=== PATIENT | male | born 1935 | race Two or more races ===

== ENCOUNTER 2016-09-13 17:21 | Emergency (ER) | payer MEDICARE, MEDICAID ==
[2016-09-13 17:40] VITALS: TEMP 98.6; BMI 20.7
[2016-09-13] MEDS ORDERED: SODIUM CHLORIDE 0.9% 10 ML FLUSH FLUSH PRN (18:09)
[2016-09-13] MEDS ORDERED: ASPIRIN 325 MG TAB PO ONE (18:28)
[2016-09-13 18:44] LABS: AUTOMATED BASOPHIL 0.8 % (0-2); AUTOMATED EOSINOPHIL 5.8 % (0-5); AUTOMATED LYMPH 24.1 % (17-44); AUTOMATED MONOCYTE 6.8 % (3-10); AUTOMATED NEUTROPHIL 62.5 % (45-76); MPV 9.2 fL (7.4-10.4)
--- NOTE | 2016-09-13 18:51 | DIRPT ---
CLINICAL DATA: Chest pain and weakness. EXAM: PORTABLE CHEST 1 VIEW COMPARISON: None FINDINGS: The cardiac silhouette is enlarged. Mediastinal contours appear intact. There is prominence of bilateral hilar regions. There is no evidence of focal airspace consolidation, pleural effusion or pneumothorax. Lung volumes are low. There is bibasilar subsegmental atelectasis. Osseous structures are without acute abnormality. 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 Soft tissues are grossly normal. IMPRESSION: Low lung volumes with bibasilar subsegmental atelectasis. Mildly enlarged cardiac silhouette. Prominence of bilateral hilar regions. This may represent overlapping vascular markings or hilar lymphadenopathy. Electronically Signed By: Mitali Boggs M.D. On: 09/13/2016 18:48
--- NOTE | 2016-09-13 18:53 | EDPRACDOC ---
- General Information Chief Complaint: Chest Pain Stated Complaint: UNABLE TO SLEEP X 2 DAYS CP HEADACE Time Seen by Provider: 09/13/16 18:09 Information Source: Patient Mode of Arrival: Car Home Medications: Home Medications Aspirin (Enteric Coated) [Halfprin] 81 mg PO DAILY #30 tab 09/13/16 Lorazepam [Ativan] 1 mg PO QHS #30 tab 09/13/16 Melatonin/Pyridoxine HCl (B6) [Melatonin 1 mg Tablet] 2 mg PO QHS 09/13/16 Allergies/Adverse Reactions: Allergies Allergy/AdvReac Type Severity Reaction Status Date / Time No Known Allergies Allergy Verified 05/27/16 09:51 - History of Present Illness Onset: today HPI: PT PRESENTS TODAY WITH FAMILY FOR CHEST PAIN X 3 HOURS. PT HAS SEVERE DEMENTIA , SO MOST HISTORY IS FROM FAMILY. FAMILY STATES THAT FOR THE PAST 3 DAYS, PT HAS BEEN PACING, SHAKY AND INABILITY TO SLEEP. STATES THAT TODAY HE STATED HE WAS HAVING CHEST PAIN AND A WESLEY. PT CURRENTLY NOT ON ANY MEDICATIONS. HAS REGULAR CHECK UPS BY PCP, MOST RECENT 6 MONTHS AGO. NO PMH OF HI/STROKE. PT ALSO STATES SHOB WITH CHEST PAIN. UNCLEAR IF PT IS HAVING PAIN AT THIS TIME, BUT DOES NOT APPEAR TO BE IN DISTRESS. Chest Pain Location: Reports: Substernal Symptoms Occur: Reports: Suddenly Cardiac Risk Factors: Reports: None Cardiac History of: Reports: None PE Risk Factors: Reports: None Prehospital Care: Reports: None Pain Came On: Reports: Suddenly Pain Status: Other (UNCLEAR) Associated Signs and Symptoms: Reports: SOB ED Past Medical History - History Reviewed Yes Nurses notes reviewed and agree except as marked - Patient Medical History Neurological History: Reports: Cerebrovascular Accident, Dementia Cardiac History: Reports: Hypertension (possibly) Respiratory History: Reports: Cough GI/ History: Reports: Urinary Tract Infection Musculoskeletal History: Reports: Arthritis Psychological History: Denies: Depression, Substance Use Disorder Systemic History: Denies: Cancer, Anemia, Diabetes - Social Medical History Smoking Status: Former smoker Social History: Denies: Benzodiazipine Use, Substance Use Disorder EDM Review of Systems - Review of Systems ROS Negative Except as Marked: Yes All systems reviewed and were negative except as marked ROS Unobtainable: Yes Hx Limited due to age/level of understanding of patient, Yes Limited due to inability of parents to provide information Constitutional: No Symptoms Reported Respiratory: Shortness of Breath Cardiovascular: Chest Pain Gastrointestinal: No Symptoms Reported Neurological: Headache, Tremors Musculoskeletal: No Symptoms Reported Integumentary: No Symptoms Reported - Physical Exam Constitutional: Alert (Awake), No apparent distress Oriented to: Time, Person, Place Last recorded Vital Signs: Last Vital Signs Temp 98.6 F 09/13/16 17:32 Pulse 60 09/13/16 18:13 Resp 20 09/13/16 18:13 BP 149/70 09/13/16 18:13 Pulse Ox 96 09/13/16 18:13 Oxygen Pulse Oxygen Saturation 96 O2 Device Room Air Oxygen Flow Rate Fraction of Inspired Oxygen ( FIO2) - HEENT Head: Normal Eye Exam: Normal Neck: Normal, Denies Pain, Midline - Respiratory/Cardiovascular Respiratory: Normal - CTA Cardiovascular: Bradycardia - GI Auscultation: Normal Palpation: Normal Tenderness: Non tender - Musculoskeletal Back: Normal Extremities: Normal - Integumentary Skin: Normal Lymphatics: Normal - Neurologic Cranial Nerve: Unable to Test Cerebellar: Normal Mood Description: Appropriate, Calm ED Chest Pain Exam - Respiratory/Cardiovascular Respiratory: Normal - CTA Cardiovascular/Chest: Bradycardia Radial Pulse: Normal Chest Palpation: Normal - Action ASA given in the ED: Yes - Re-evaluation Re-evaluation 1 Re-evaluation Time: 21:56 PT RESTING. NO MORE COMPLAINTS OF CP. CASE DISCUSSED WITH DR. NEWBERRY AND PT OK FOR HOME. - Results 09/13/16 18:30 09/13/16 18:30 WBC 6.8 xk/uL (3.8-10.8) 09/13/16 18:30 RBC 4.03 xM/uL (4.70-6.10) L 09/13/16 18:30 Hgb 12.7 g/dL (14.0-18.0) L 09/13/16 18:30 Hct 37.7 % (42-52) L 09/13/16 18:30 MCV 93 fL (80-94) 09/13/16 18:30 MCH 31.6 pg (27-32) 09/13/16 18:30 MCHC 33.8 g/dl (33-36) 09/13/16 18:30 RDW 14.6 % (11.5-14.5) H 09/13/16 18:30 Plt Count 217 xk/uL (130-400) 09/13/16 18:30 MPV 9.2 fL (7.4-10.4) 09/13/16 18:30 Neut % (Auto) 62.5 % (45-76) 09/13/16 18:30 Lymph % (Auto) 24.1 % (17-44) 09/13/16 18:30 [place] % (Auto) 6.8 % (3-10) 09/13/16 18:30 Eos % (Auto) 5.8 % (0-5) H 09/13/16 18:30 Baso % (Auto) 0.8 % (0-2) 09/13/16 18:30 Absolute Neuts (auto) 4.22 xk/uL (1.7-8.2) 09/13/16 18:30 Absolute Lymphs (auto) 1.63 xk/uL (0.65-4.75) 09/13/16 18:30 Lab Results 09/13/16 18:30 WBC 6.8 RBC 4.03 L Hgb 12.7 L Hct 37.7 L MCV 93 MCH 31.6 MCHC 33.8 RDW 14.6 H Plt Count 217 MPV 9.2 Neut % (Auto) 62.5 Lymph % (Auto) 24.1 [place] % (Auto) 6.8 Eos % (Auto) 5.8 H Baso % (Auto) 0.8 Absolute Neuts (auto) 4.22 Absolute Lymphs (auto) 1.63 Laboratory Results - last 24 hr 09/13/16 18:30 WBC 6.8 RBC 4.03 L Hgb 12.7 L Hct 37.7 L MCV 93 MCH 31.6 MCHC 33.8 RDW 14.6 H Plt Count 217 MPV 9.2 Neut % (Auto) 62.5 Lymph % (Auto) 24.1 [place] % (Auto) 6.8 Eos % (Auto) 5.8 H Baso % (Auto) 0.8 Absolute Neuts (auto) 4.22 Absolute Lymphs (auto) 1.63 Laboratory Results 09/13/16 18:30 - EKG EKG #1 EKG Time: 17:34 -: Yes EKG interpreted by me Rate: bpm: 60 [place]: Normal Rhythm: NSR Block: None Hypertrophy: None ST: Normal Decision Time to Discharge: 21:55 - Departure Disposition: Home Condition: Stable Final Diagnosis: Angina Instructions: Chest Pain (ED) Education/Counseling Given To: Family Member Education/Counseling Given Regarding: Diagnosis, Treatment, Follow Up Referrals: Parviz Kessler MD [Staff Physician] - One Week None,No Provider [Primary Care Provider] - One Week Lan Chan MD [Staff Physician] - One Week [facility] [NonStaff] - One Week Prescriptions: Lorazepam [Ativan] 1 mg PO QHS #30 tab Aspirin (Enteric Coated) [Halfprin] 81 mg PO DAILY #30 tab Additional Instructions: REST AND PLENTY OF FLUIDS. FOLLOW UP WITH PCP FOR POSSIBLE NEED OF OUTPATIENT CARDIAC WORK UP. FEEL FREE TO RETURN TO ED FOR ANY WORSE/CONCERNING SYMPTOMS.
[2016-09-13 19:00] LABS: BLOOD UREA NITROGEN 18 MG/DL (9-20); CALCIUM 8.9 MG/DL (8.4-10.2); CALCULATED OSMOLALITY 273 MOs/Kg (270-290); CHLORIDE 103 mEq/L (98-107); GLUCOSE 99 MG/DL (70-99); PARTIAL THROMB. TIME 26.7 SEC (22-35); SODIUM LEVEL 141 mEq/L (137-146); TOTAL PROTEIN 7.2 G/DL (6.3-8.2)
--- NOTE | 2016-09-13 19:20 | DIRPT ---
CLINICAL DATA: Altered mental status for 3 days and frontal headache. Known dementia. EXAM: CT HEAD WITHOUT CONTRAST TECHNIQUE: Contiguous axial images were obtained from the base of the skull through the vertex without intravenous contrast. COMPARISON: None. FINDINGS: Age related cerebral atrophy, ventriculomegaly and periventricular white matter disease. No extra-axial fluid collections are identified. No CT findings for acute hemispheric infarction or intracranial hemorrhage. No mass lesions. The brainstem and cerebellum are normal. No significant bony findings. The paranasal sinuses and mastoid air cells are clear. IMPRESSION: Age related cerebral atrophy, ventriculomegaly and periventricular white matter disease. No acute intracranial findings or mass lesions. Electronically Signed By: Mitchell Gonzalez M.D. On: 09/13/2016 19:17
[2016-09-13 19:32] LABS: URINE OCCULT BLOOD 1+ (NEG/TRACE)
[2016-09-13 19:33] LABS: LEUKOCYTES/URINE TRACE (NEGATIVE); NITRITE/URINE NEG (NEGATIVE)
[2016-09-13 19:37] LABS: WBC/URINE 0-2 (0-2)
[2016-09-13] MEDS ORDERED: MORPHINE 4 MG/ML INJECTION IV ONE (19:56)
[2016-09-13] MEDS ORDERED: NITROGLYCERINE 2 % OINTMENT PACK TOP ONE (19:56)
[2016-09-13] MEDS ORDERED: NITROGLYCERINE 0.4 MG TAB SL SCH (20:00)
[2016-09-13] MEDS ORDERED: LORAZEPAM 2 MG/ML VIAL IV ONE (20:31)
[2016-09-13 22:32] VITALS: BP 142/78; PULSE 74
== END 2016-09-13 22:32 | disposition home or self-care (01) ==
LOC: ED 17:21
DX: I20.9 Angina pectoris, unspecified (principal); F03.90 Unspecified dementia, unspecified severity, without behavioral disturbance, psychotic disturbance, mood disturbance, and anxiety; Z86.73 Personal history of transient ischemic attack (TIA), and cerebral infarction without residual deficits; Z79.899 Other long term (current) drug therapy
CPT/HCPCS: 36415; 70450; 71010; 80053; 81001; 84484; 85025; 85610; 85730; 93005; 96374; 96375; 99284; A9270; J2060; J2270; J3490